=== PATIENT | male | born 1955 | race Caucasian/White ===

== ENCOUNTER 2017-11-05 11:43 | Emergency (ER) | payer BC ==
[2017-11-05 12:36] VITALS: BP 166/54
--- NOTE | 2017-11-05 13:14 | UC ---
Complaint Male HPI - HPI Summary HPI Summary: FEVER, CHILLS, BODY ACHES, MILD COUGH NO ABDOMINAL PAIN , NO N/V/D/C + URINARY FREQUENCY AND BURNING NO BACK PAIN - History of Current Complaint Chief Complaint: UCGeneralIllness Stated Complaint: FLU LIKE SXS Time Seen by Provider: 11/05/17 12:36 Hx Obtained From: Patient Onset/Duration: Gradual Onset, Lasting Days - 4, Still Present Timing: Constant Severity Initially: Severe Severity Currently: Severe Pain Intensity: 0 Location: None Character: Burning Aggravating Factor(s): Voiding Alleviating Factor(s): Nothing Associated Signs And Symptoms: Positive: Fever, Dysuria. Negative: Diaphoresis , Back Pain, Hematuria, Constipation, Blood in Stool, Rectal Pain, Appetite, Nausea, Vomiting(# Of Episodes =), Penile Swelling, Penile Discharge - Allergies/Home Medications Allergies/Adverse Reactions: Allergies Allergy/AdvReac Type Severity Reaction Status Date / Time No Known Allergies Allergy Verified 11/05/17 12:36 PMH/Surg Hx/FS Hx/Imm Hx Cardiovascular History: Hypertension - Surgical History Surgical History: Yes Surgery Procedure, Year, and Place: appy - Family History Known Family History: Negative: Diabetes - Social History Alcohol Use: Occasionally Substance Use Type: None Smoking Status (MU): Current Some Day Smoker Type: Cigars Review of Systems Constitutional: Fever, Chills, Fatigue Skin: Negative Eyes: Negative ENT: Negative Respiratory: Negative Gastrointestinal: Negative Genitourinary: Dysuria Is Patient Immunocompromised?: No All Other Systems Reviewed And Are Negative: Yes Physical Exam Triage Information Reviewed: Yes Appearance: No Pain Distress, Well-Nourished, Ill-Appearing Vital Signs: Initial Vital Signs Temp 98.9 F 11/05/17 12:31 Pulse 120 11/05/17 12:31 Resp 18 11/05/17 12:31 BP 166/54 11/05/17 12:31 Pulse Ox 96 11/05/17 12:31 Vital Signs Reviewed: Yes Eyes: Positive: Conjunctiva Clear ENT: Positive: Normal ENT inspection, Hearing grossly normal, Pharynx normal Neck exam: Normal Neck: Positive: Supple, Nontender, No Lymphadenopathy Respiratory: Positive: Chest non-tender, Lungs clear, Normal breath sounds Cardiovascular: Positive: Tachycardia Abdomen Description: Positive: Nontender, Soft. Negative: CVA Tenderness (R), CVA Tenderness (L), Distended, Guarding Bowel Sounds: Positive: Present Musculoskeletal Exam: Normal Skin Exam: Normal Complaint Male Course/Dx - Differential Dx/Diagnosis Provider Diagnoses: PROSTITITIS Discharge - Discharge Plan Condition: Stable Disposition: HOME Prescriptions: Ciprofloxacin TAB* [Cipro 500 MG TAB*] 500 mg PO BID #20 tab Patient Education Materials: Kidney Infection (ED) Referrals: No Primary Care Phys,NOPCP [Primary Care Provider] - 2 Days Additional Instructions: KIDNEY INFECTION VS PROSTITITIS WILL CHECK CBC, CMP CONT. WITH REST, FLUID, TYLENOL NEEDED FOR PAIN CIPRO 2 X PER DAY FOR 10 DAYS FOLLOW UP WITH YOUR PCP IN 2 DAYS , GO TO ED IF GETTING WORSE
[2017-11-05 19:35] LABS: EGFR Non-African American 69.7 (>60)
[2017-11-05 20:24] LABS: ABS Basophils 0 10^3/ul (0-0.2); ABS Eosinophils 0 10^3/ul (0-0.6); ABS Lymphocytes 0.3 10^3/ul (1.0-4.8); ABS Monocytes 0.7 10^3/ul (0-0.8); ABS Neutrophils 9.5 10^3/ul (1.5-7.7); ABS Nucleated RBC 0 10^3/ul; Eosinophil % 0.1 % (0-6); Hematocrit 45 % (42-52); Hemoglobin 16.3 g/dl (14.0-18.0); Lymphocyte % 2.7 % (25-47); Mean Corpuscular HGB Conc 36 g/dl (31-36); Mean Corpuscular Hemoglobin 32 pg (27-31); Mean Corpuscular Volume 91 fL (80-94); Mean Platelet Volume 9 um3 (7.4-10.4); Nucleated Red Blood Cells % 0; Platelet Count 115 10^3/ul (150-450); Red Blood Count 5.02 10^6/ul (4.0-5.4); Red Cell Distribution Width 13 % (10.5-15); White Blood Count 10.6 10^3/ul (3.5-10.8)
== END 2017-11-05 13:21 | disposition home or self-care (01) ==
LOC: UCCORT 11:43
DX: N41.9 Inflammatory disease of prostate, unspecified (principal); B96.20 Unspecified Escherichia coli [E. coli] as the cause of diseases classified elsewhere; I10 Essential (primary) hypertension
CPT/HCPCS: 36415; 80053; 81003; 85025; 87077; 87086; 87186; 99211; G0463